=== PATIENT | male | born 2000 | race Caucasian/White ===

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

== ENCOUNTER 2020-09-29 12:17 | Emergency (ER) | payer MEDICAID ==
[~2020-09-29] VITALS: Ht 165.1 cm; Wt 159.1 kg
[2020-09-29 12:22] VITALS: Ht 165.1 cm; Wt 159.1 kg
[2020-09-29 12:56] LABS: BASOPHILS 0.4 % (0-2); EOSINOPHILS 1.6 % (0-7); HEMATOCRIT 48.5 % (42.0-54.0); HEMOGLOBIN 16.7 g/dL (13.5-17.5); IMMATURE GRANULOCYTES 0.2 % (0-5); LYMPHOCYTE ABS# 2.36 10x3/uL (1.32-3.57); LYMPHOCYTES 24.4 % (15-50); MCH 30.4 pg (26.0-34.0); MCHC 34.4 g/dL (31.0-37.0); MCV 88.2 fL (80.0-100.0); MEAN PLATELET VOLUME 11.3 fL (7.4-10.4); MONOCYTES 12.1 % (2-11); NEUTROPHIL ABS# 5.92 10x3/uL (1.78-5.38); NEUTROPHILS 61.3 % (40-80); PLATELET COUNT 185 10x3/uL (130-400); RDW 12.9 % (11.5-14.5); WBC 9.7 10x3/uL (4.8-10.8)
[2020-09-29 13:03] LABS: CALC OSMOLALITY 276 mosm/kg (275-300); CALCIUM 8.8 mg/dL (8.5-10.1); CARBON DIOXIDE 26.7 mmol/L (21.0-32.0); CHLORIDE - SERUM 104 mmol/L (98-107); CREATININE - SERUM 1.1 mg/dL (0.6-1.3); GLUCOSE 105 mg/dL (74-106); POTASSIUM - SERUM 3.7 mmol/L (3.5-5.1); SODIUM 138 mmol/L (136-145); UREA NITROGEN 14 mg/dL (7-18); eGFR NON AFRICAN AMERICAN 90 mL/min (90-120)
[2020-09-29 13:12] LABS: ALBUMIN 3.8 g/dL (3.4-5.0); ALKALINE PHOSPHATASE 104 U/L (30-120); ALT (SGPT) 49 U/L (10-68); AMYLASE - SERUM 47 U/L (25-115); BILIRUBIN - TOTAL 0.27 mg/dL (0.2-1.3); LIPASE 137 U/L (73-393); PROTEIN - SERUM 7.5 g/dL (6.4-8.2); TROPONIN-I < 0.017 ng/mL (0.000-0.060)
[2020-09-29 14:51] LABS: BILIRUBIN NEGATIVE (NEGATIVE); KETONE NEGATIVE (NEGATIVE); NITRITE NEGATIVE (NEGATIVE); UROBILINOGEN NORMAL mg/dL (< 2)
[2020-09-29] MEDS ORDERED: BENTYL 20 MG TA20 MG PO (15:30)
[2020-09-29] MEDS ORDERED: ZOFRAN ODT4 MG/UDTAB PO (15:30)
[2020-09-29 15:48] VITALS: BP 149/92
== END 2020-09-29 15:49 | disposition home or self-care (01) ==
LOC: D.ER 12:17
PROVIDERS: Family Medicine
DX: R10.13 Epigastric pain (principal); R11.0 Nausea; I10 Essential (primary) hypertension; Z72.0 Tobacco use